=== PATIENT | male | born 1995 | race Caucasian/White ===

== ENCOUNTER 2024-07-27 14:15 | Day surgery (SDC) | payer OTHER, SELFPAY ==
[2024-07-27] VITALS (9 sets, daily range): BP systolic 112–184; BP diastolic 68–103; BMI 26.9
--- NOTE | 2024-07-27 09:33 | ED.GENMED ---
History of Present Illness
General
Chief Complaint: Skin Problem
Source: patient
Time Seen by Provider: 07/27/24 09:28
History of Present Illness
History of Present Illness:
28-year-old male with no significant past medical history presenting to the emergency department for evaluation of of rectal pain that started this past Thursday, worsened over the last 12 to 24 hours prompting him to go to [facility] urgent care where he
was told he could have a potential abscess but was not given any medications, pain worsened overnight prompting him to come to the ER this morning. Denies any fevers, chills, rigors. Notes pain is mainly in the left side of the buttocks/rectum.
Denies any history of similar. No bowel changes. No other concerns.
Past History
Past History
ED Past Medical History: None
ED Past Surgical History: Other
Social History
Tobacco: Non-smoker
Alcohol: Occasional
Drug: None
Living: with family
Employment: Employed
Review of Systems
Review of Systems
All Other Systems: ROS reviewed and negative except as documented in HPI and ROS
Phy Exam
Physical Exam
Physical Exam:
GENERAL: Alert , in no apparent distress
EYE: conjunctiva clear
Head: Normocephalic atraumatic
NECK: Supple,
ENT: mmm.
LUNGS: no acute respiratory distress
RECTAL EXAM: Patient has 2 separate nonthrombosed external hemorrhoids that are nontender, just lateral to the rectum and the deeply palpated there does appear to be a somewhat indurated and tender area, no overlying erythema, no purulence
NEUROLOGICAL: Alert and oriented
SKIN: Warm and dry, skin intact.
MUSCULOSKELETAL: well perfused.
PSYCH: Normal and appropriate interaction.
Scores
Heart Failure Risk
Heart Failure Risk Score: Not Applicable
Heart Score for Chest Pain Patients
STEMI patient?: Not applicable
Withdrawal Assessment of Alcohol
Withdrawal Assessment Completed?: Not applicable
Course
Orders/Labs/Results
Orders:
Orders
07/27/24 09:33
CT Abd/pelvis W Iv Cont Urgent
Comment:
Reason For Exam: possible rectal abscess, pain
07/27/24 09:37
Basic Metabolic Panel Urgent
Complete Blood Count/With Diff Urgent
Ketorolac [Toradol] 30 mg IV NOW STA
07/27/24 13:33
Dexamethasone Pf [Decadron] 10 mg .ROUTE .STK-MED ONE
07/27/24 13:34
Bupivacaine Pf 0.5% [Sensorcaine 0.5% Single Dose] 30 ml .ROUTE .STK-MED ONE
Lidocaine 1%/Epinephrine [Xylocaine 1% with Epinephrine] 20 ml .ROUTE .STK-MED ONE
07/27/24 13:41
Fentanyl Citrate/Pf [Sublimaze] 100 mcg .ROUTE .STK-MED ONE
Glycopyrrolate [Robinul] 0.2 mg .ROUTE .STK-MED ONE
Ketamine 5 ml .ROUTE .STK-MED
Lidocaine 2% Mpf [Xylocaine Mpf 2%] 100 mg .ROUTE .STK-MED ONE
Midazolam HCl [Versed] 2 mg .ROUTE .STK-MED ONE
Propofol [Diprivan] 40 ml .ROUTE .STK-MED
Abnormal Lab Results
07/27/24
09:37
WBC 11.8 H 10^3/uL
(4.8-10.8)
Abs Immat Gran (auto) 0.1 H 10^3/uL
(0-0.05)
Absolute Neuts (auto) 8.1 H 10^3/uL
(1.4-6.5)
Absolute Monos (auto) 0.8 H 10^3/uL
(0.1-0.6)
Immature Gran % 0.6 H %
(0-0.5)
Lymphocytes % 20.3 L %
(20.5-51.1)
Glucose 110 H mg/dl
(70-99)
07/27/24 09:37
07/27/24 09:37
Vital Signs
Initial and Last Documented VS:
Initial Vital Signs
Temp Pulse Resp BP Pulse Ox
97.6 F 91 18 184/103 98
07/27/24 09:22 07/27/24 09:22 07/27/24 09:22 07/27/24 09:22 07/27/24 09:22
Last Documented Vital Signs
Temp Pulse Resp BP Pulse Ox
98.4 F 83 18 134/80 99
07/27/24 10:51 07/27/24 10:51 07/27/24 10:51 07/27/24 10:51 07/27/24 10:51
MDM/Problems Addressed
Differential Diagnosis Includes:
Hemorrhoids, rectal fissure, abscess, rectal prolapse
MDM/Problems Addressed:
28-year-old male presenting to the emergency department for evaluation of possible rectal abscess, symptoms started about 4 days ago, acutely worse over the last 12 hours. Went to urgent care and states nothing was done for him there and was not
initiated on any medications. Based off my exam there is 2 separate nonthrombosed external hemorrhoids which could potentially be the cause for patient's pain. Patient reports pain is mostly lateral to this area and there does appear to be a deep
space area that is more tender to palpation. Will obtain CT scan to evaluate for possible abscess and given the depth of the potential infection may require colorectal surgery consultation. Toradol 30 mg IV ordered for pain control. Disposition
pending.
*Radiology
Radiology exam reviewed: radiology read reviewed
*Pulse Oximetry
Patient hypoxic: no
*Critical Care Note
Total Time (30-74mins, 75-104mins- exclusive of procedures): Not Applicable
Patient Management
Discussion with other providers: [employer]
Escalation/DeEscalation of care consider admission/obs:
11:30AM - case d/w colorectal surgery who will come to ED to see patient for further evaluation and treatment planning
1:30 PM: Patient seen by colorectal surgery who plans to take patient to the OR for drainage of perirectal abscess. They will disposition from the OR.
ED Attending Note
-
Portions of this chart may have been created with voice recognition software.� Occasional wrong word or��sound alike� substitutions may have occurred due to the inherent limitations of voice recognition software.
Discharge Plan
Departure
Patient Disposition: OR
Date of Disposition: 07/27/24
Time of Disposition: 13:36
Presentation/result/management discussed w/ accepting MD/DO: Natalia
Discharge Problem:
Jocelynn-rectal abscess
Referrals:
NONE,* [Family Provider] -
Interventions
Interventions:
*Risk Screen - Suicide Last Done: 07/27/24 09:22
*General Assessment Last Done: 07/27/24 09:22
*Neglect/Abuse Screening Last Done: 07/27/24 13:27
ED- Fall Risk Assessment Last Done: 07/27/24 09:38
*ED COVID-19 Vaccine History Last Done: 07/27/24 09:22
*Nursing Disposition Last Done: 07/27/24 13:28
ED-Skin Assessment Last Done: 07/27/24 09:39
Discharge Date and Time
Discharge Date/Time: 07/27/24 13:37
Print Language: ARABIC
[2024-07-27] MEDS: TORADOL 30 MG IV (09:46)
[2024-07-27 09:57] LABS: % Basophils 0.3 % (0-2); % Eosinophils 3.3 % (0-6); % Immature Granulocytes 0.6 % (0-0.5); % Lymphocytes 20.3 % (20.5-51.1); % Monocytes 6.5 % (1.7-9.3); Absolute Eosinophils 0.4 10^3/uL (0-0.7); Absolute Immature Granulocytes 0.1 10^3/uL (0-0.05); Absolute Lymphocytes 2.4 10^3/uL (1.2-3.4); Absolute Monocytes 0.8 10^3/uL (0.1-0.6); Absolute Neutrophils 8.1 10^3/uL (1.4-6.5); Hematocrit 47.6 % (39.0-52.0); Hemoglobin 16.6 g/dL (13.0-18.0); Mean Corp Hgb Conc. 34.9 g/dL (33.0-37.0); Mean Corpuscular Hgb 29.6 pg (27.0-31.0); Mean Corpuscular Volume 84.8 fL (80.0-94.0); Mean Platelet Volume 9.8 fL (7.4-10.4); Nucleated Red Blood Cells % 0 % (-); Platelet Count 322 10^3/uL (130-400); Red Blood Cell Count 5.61 10^6/uL (4.70-6.10); Red Cell Dist. Width 12.7 % (11.5-14.5); White Blood Cell Count 11.8 10^3/uL (4.8-10.8)
[2024-07-27 10:15] LABS: Blood Urea Nitrogen 11 mg/dl (9-20); Estimated Creatinine Clearance 91 ml/min; Glucose 110 mg/dl (70-99); Potassium 4.2 mmol/L (3.5-5.1); Sodium 138 mmol/L (135-145); eGFR > 60.00
[2024-07-27 10:16] LABS: Carbon Dioxide 26 mmol/L (22-30); Chloride 101 mmol/L (98-107)
--- NOTE | 2024-07-27 14:14 | CON.MD ---
Consultation - Medical
-
Full consult to be dictated.
History, vitals, labs, imaging reviewed. Patient seen and examined.
Assessment/Plan: 28 yo M with L perianal abscess and associated pain/leukocytosis visualized on CT. Recommended trip to OR for I and D. Risks/benefits discussed and he agrees to proceed.
== END 2024-07-27 16:27 | disposition home or self-care (01) ==
LOC: PACU 14:15
PROVIDERS: Physician Assistant Medical; ATTENDING PHYSICIAN Surgery; EMERGENCY PHYSICIAN Emergency Medicine
DX: K61.2 Anorectal abscess (principal); B96.1 Klebsiella pneumoniae [K. pneumoniae] as the cause of diseases classified elsewhere; B95.3 Streptococcus pneumoniae as the cause of diseases classified elsewhere
CPT/HCPCS: 46050; 74177; 80048; 85025; 87070; 87075; 87076; 87077; 87185; 87186; 87205; 96374; 99284; Q9967

== ENCOUNTER 2025-05-04 06:42 | Day surgery (SDC) | payer OTHER, SELFPAY ==
[2025-05-04 12:47] VITALS: BMI 26.9
[2025-05-04 12:49] VITALS: BMI 26.9
[2025-05-04 12:51] VITALS: BP 147/88
[2025-05-04] MEDS: NORMOSOL-R/PLASMALYTE-A 1000 IV (12:56)
[2025-05-04 13:57] VITALS: BP 139/86
[2025-05-04 14:00] VITALS: BP 112/51
[2025-05-04 14:16] VITALS: BP 126/66
[2025-05-04 14:30] VITALS: BP 126/58
== END 2025-05-04 14:55 | disposition home or self-care (01) ==
LOC: SDS 06:42
PROVIDERS: ATTENDING PHYSICIAN Surgery
DX: K60.30 Anal fistula, unspecified (principal)
CPT/HCPCS: 46270